=== PATIENT | female | born 1990 | race Caucasian/White ===

== ENCOUNTER 2018-06-12 16:55 | Emergency (ER) | payer SELFPAY ==
[2018-06-12] MEDS ORDERED: NITROFURANTOIN MONOHYD/M-CRYST 100 MG CAPSULE PO ONE (17:24)
--- NOTE | 2018-06-12 17:31 | ER Document Report ---
ED General - General Chief Complaint: Urinary Frequency Stated Complaint: URGENCY WITH URINATION Time Seen by Provider: 06/12/18 17:22 TRAVEL OUTSIDE OF THE [place] IN LAST 30 DAYS: No - HPI Notes: 28-year-old female with a history of frequent recurrent UTIs presents with "I think I have a urinary tract infection". Describes a couple days of gradual onset frequency urgency and dysuria. No abdominal pain. No vomiting. No back pain. Feels like previous UTIs. Recently moved here. No other modifying factors, no other associated symptoms, no other provocative or palliative factors. - Related Data Allergies/Adverse Reactions: morphine Allergy (Verified 06/12/18 16:59) Penicillins Allergy (Verified 06/12/18 16:59) Sulfa (Sulfonamide Antibiotics) Allergy (Verified 06/12/18 16:59) Past Medical History - General Information source: Patient - Social History Smoking Status: Smoker,Current Status Unk Drug Abuse: None Family History: Reviewed & Not Pertinent - Medical History Notes: Includes frequent UTIs Review of Systems - Review of Systems Notes: Review of systems as in history of present illness, otherwise no significant headache, chest pain, abdominal pain. Physical Exam - Notes Notes: General: Well developed . HEENT: Normocephalic, atraumatic. Pupils equal round reactive to light. No JVD. Chest: No trauma. Respiratory: Good air exchange, normal excursion. Cardiac: Regular rhythm. No murmurs or gallops. Abdomen: Soft, benign. Nondistended. Nontender. Back: No asymmetry or gross abnormality. Motor: Grossly normal power and tone. Neurologic: Alert, nonfocal. Cranial nerves II-12 are intact. Sensation intact. Vascular: Well perfused. Normal peripheral pulses. Skin: No petechiae or purpura. Course - Re-evaluation Re-evalutation: 06/12/18 17:31 Well-appearing female with high pretest probability for UTI. Will treat with Macrodantin and she states she is Keflex and Bactrim allergic. Will check culture given the complexity of previous UTIs, reassess. Check urine test. Check UA. 06/12/18 18:06 Urine is consistent with infection. Given a dose of Macrobid in the ED, prescription for the same. - Laboratory Laboratory results interpreted by me: 06/12/18 17:12 Ur Leukocyte Esterase MODERATE H Discharge - Discharge Clinical Impression: Urinary tract infection Qualifiers: Urinary tract infection type: acute cystitis Hematuria presence: without hematuria Qualified Code(s): N30.00 - Acute cystitis without hematuria Disposition: HOME, SELF-CARE Instructions: Urinary Tract Infection ([facility]) Prescriptions: Nitrofurantoin Monohyd/M-Cryst [Macrobid 100 mg Capsule] 1 tab PO BID #20 capsule
[2018-06-12 17:37] LABS: AMORPHOUS SEDIMENT,URINE TRACE /HPF; APPEARANCE,URINE CLOUDY; BILIRUBIN,URINE NEGATIVE (NEGATIVE); COLOR,URINE YELLOW; GLUCOSE, URINE NEGATIVE (NEGATIVE); KETONES,URINE NEGATIVE (NEGATIVE); LEUKOCYTE ESTERASE,URINE MODERATE (NEGATIVE); NITRITE,URINE NEGATIVE (NEGATIVE); PROTEIN,URINE NEGATIVE (NEGATIVE); UROBILINOGEN,URINE NEGATIVE mg/dL (<2.0)
[2018-06-12 18:25] VITALS: BP 105/58
== END 2018-06-12 18:36 | disposition home or self-care (01) ==
LOC: ER 16:55
DX: N30.00 Acute cystitis without hematuria (principal); Z88.5 Allergy status to narcotic agent; Z88.0 Allergy status to penicillin; Z88.2 Allergy status to sulfonamides
CPT/HCPCS: 99283; 87086; 87088; 81001; J8499

== ENCOUNTER 2018-10-20 10:27 | Emergency (ER) | payer SELFPAY ==
[2018-10-20 10:31] VITALS: BP 118/68
--- NOTE | 2018-10-20 10:42 | ER Document Report ---
ED GI/ - General Chief Complaint: Urinary Problem Stated Complaint: URINARY ISSUE Time Seen by Provider: 10/20/18 10:36 Mode of Arrival: Ambulatory Information source: Patient Notes: Chief complaint: Burning sensation History of complain:( obtained from----patient) 28 years old female presents today with dysuria, hematuria since yesterday. No fever chills or other constitutional symptoms denies any abdominal pain Onset: Gradual Duration: One day Severity: Mild Quality: Burning Context: History of UTI Exacerbating factor and relieving factors: None REVIEW OF SYSTEMS: CONSTITUTIONAL : Denies fever, chills, or sweats. Denies recent illness. EENT: Denies eye, ear, throat, or mouth pain or symptoms. Denies nasal or sinus congestion or discharge. Denies throat, tongue, or mouth swelling or difficulty swallowing. CARDIOVASCULAR: Denies chest pain. Denies palpitations or racing or irregular heart beat. Denies ankle edema. RESPIRATORY: Denies cough, cold, or chest congestion. Denies shortness of breath, difficulty breathing, or wheezing. GASTROINTESTINAL: Denies distention. Denies nausea, vomiting, or diarrhea. Denies blood in vomitus, stools, or per rectum. Denies black, tarry stools. Denies constipation. GENITOURINARY: Denies difficulty urinating, painful urination, burning, frequency, blood in urine, or discharge. FEMALE GENITOURINARY: Denies vaginal bleeding, heavy or abnormal periods, irregular periods. Denies vaginal discharge or odor. MUSCULOSKELETAL: Denies back or neck pain or stiffness. Denies joint pain or swelling. SKIN: Denies rash, lesions or sores. HEMATOLOGIC : Denies easy bruising or bleeding. LYMPHATIC: Denies swollen, enlarged glands. NEUROLOGICAL: Denies confusion or altered mental status. Denies passing out or loss of consciousness. Denies dizziness or lightheadedness. Denies headache. Denies weakness or paralysis or loss of use of either side. Denies problems with gait or speech. Denies sensory loss, numbness, or tingling. Denies seizures. PSYCHIATRIC: Denies anxiety or stress. Denies depression, suicidal ideation, or homicidal ideation. ALL OTHER SYSTEMS REVIEWED AND NEGATIVE. PHYSICAL EXAMINATION: GENERAL: Well-appearing, well-nourished and in no acute distress. HEAD: Atraumatic, normocephalic. EYES: Pupils equal round and reactive to light, extraocular movements intact, conjunctiva are normal. ENT: Nares patent, oropharynx clear without exudates. Moist mucous membranes. NECK: Normal range of motion, supple without lymphadenopathy LUNGS: Breath sounds clear to auscultation bilaterally and equal. No wheezes rales or rhonchi. HEART: Regular rate and rhythm without murmurs ABDOMEN: Soft, nontender, nondistended abdomen. No guarding, no rebound. No masses appreciated. Examination of genitals-deferred Musculoskeletal: Normal range of motion, no pitting or edema. No cyanosis. NEUROLOGICAL: Cranial nerves grossly intact. Normal speech, normal gait. Normal sensory, motor exams PSYCH: Normal mood, normal affect. SKIN: Warm, Dry, normal turgor, no rashes or lesions noted. Dictation was performed using [employer] voice recognition software TRAVEL OUTSIDE OF THE [place] IN LAST 30 DAYS: No - HPI Notes: 10/20/18 10:41 Dictated - Related Data Allergies/Adverse Reactions: morphine Allergy (Verified 10/20/18 10:28) Penicillins Allergy (Verified 10/20/18 10:28) Sulfa (Sulfonamide Antibiotics) Allergy (Verified 10/20/18 10:28) Past Medical History - Social History Smoking Status: Current Every Day Smoker Frequency of alcohol use: None Drug Abuse: None Lives with: Family Family History: Reviewed & Not Pertinent Patient has suicidal ideation: No Patient has homicidal ideation: No Renal/ Medical History: Denies: Hx Peritoneal Dialysis Past Surgical History: Reports: Hx Section - x3, Hx Tubal Ligation Review of Systems - Review of Systems Notes: Dictated Physical Exam - Vital signs Vitals: Temp Pulse Resp BP Pulse Ox 98.7 F 92 14 118/68 99 10/20/18 10:28 10/20/18 10:28 10/20/18 10:28 10/20/18 10:28 10/20/18 10:28 - Notes Notes: Dictated Course - Vital Signs Vital signs: Temp Pulse Resp BP Pulse Ox 98.7 F 92 14 118/68 99 10/20/18 10:28 10/20/18 10:28 10/20/18 10:28 10/20/18 10:28 10/20/18 10:28 - Laboratory Laboratory results interpreted by me: 10/20/18 10:40 Urine Blood LARGE H Discharge - Discharge Clinical Impression: Dysuria Condition: Fair Disposition: HOME, SELF-CARE Instructions: Urinary Tract Infection ([facility]) Prescriptions: Ciprofloxacin HCl [Cipro 500 mg Tablet] 500 mg PO BID #10 tablet
[2018-10-20 11:15] LABS: APPEARANCE,URINE SLIGHTLY-CLOUDY; BILIRUBIN,URINE NEGATIVE (NEGATIVE); COLOR,URINE YELLOW; GLUCOSE, URINE NEGATIVE (NEGATIVE); KETONES,URINE NEGATIVE (NEGATIVE); LEUKOCYTE ESTERASE,URINE NEGATIVE (NEGATIVE); NITRITE,URINE NEGATIVE (NEGATIVE); PROTEIN,URINE NEGATIVE (NEGATIVE); UROBILINOGEN,URINE NEGATIVE mg/dL (<2.0)
== END 2018-10-20 12:30 | disposition home or self-care (01) ==
LOC: ER 10:27
DX: R30.0 Dysuria (principal); R31.9 Hematuria, unspecified; F17.200 Nicotine dependence, unspecified, uncomplicated; Z88.6 Allergy status to analgesic agent; Z88.0 Allergy status to penicillin; Z88.2 Allergy status to sulfonamides
CPT/HCPCS: 81001; 81025; 99283

== ENCOUNTER 2020-09-06 09:59 | Outpatient (CLI) | payer SELFPAY ==
[2020-09-06] MEDS ORDERED: FERUMOXYTOL (NON-ESRD) 510 MG/NS 100 ML IV PRN ×2 (10:04)
[2020-09-06] MEDS ORDERED: NORMAL SALINE 250 ML IV PRN (10:05)
[2020-09-06 10:07] VITALS: BP 119/67
== END 2020-09-06 11:12 | disposition home or self-care (01) ==
LOC: II 09:59 → 5TH 10:02 → II 11:12
PROVIDERS: ATTEND Internal Medicine Hematology & Oncology
DX: D50.9 Iron deficiency anemia, unspecified (principal); K90.9 Intestinal malabsorption, unspecified
CPT/HCPCS: 96365; Q0138; J7050

== ENCOUNTER 2020-09-13 10:04 | Outpatient (CLI) | payer SELFPAY ==
[~2020-09-13 10:04] MED LIST: FERUMOXYTOL 510 MG in NORMAL SALINE 100 ML IV PRN; NORMAL SALINE 250 ML IV PRN
[2020-09-13 10:21] VITALS: BP 117/64
== END 2020-09-13 10:56 | disposition home or self-care (01) ==
LOC: II 10:04 → 5TH 10:07 → II 10:56
PROVIDERS: ATTEND Internal Medicine Hematology & Oncology
DX: D50.9 Iron deficiency anemia, unspecified (principal); K90.9 Intestinal malabsorption, unspecified
CPT/HCPCS: 96365; Q0138; J7050